=== PATIENT | male | born 1995 | race African-American/Black ===

== ENCOUNTER → 2020-01-26 | Emergency (ER) | payer MEDICAID, OTHER ==
[~2020-01-26] VITALS: Ht 170.2 cm; Wt 72.6 kg
[~2020-01-26] MED LIST: LORazepam 2MG/ML-1ML VIAL IM ONE; LORazepam 2MG/ML-1ML VIAL IV ONE
[2020-01-26 02:04] VITALS: BP 152/89
[2020-01-26 02:15] LABS: Basophils # (auto) 0 10 ^3/uL (0-0.2); Basophils % (auto) 0.3 % (0.0-2.0); Eosinophils # (auto) 0 10 ^3/uL (0-0.8); Eosinophils % (auto) 0.2 % (0.0-7.0); Hematocrit 51.1 % (41.0-53.0); Hemoglobin 17.3 g/dL (13.5-17.5); Lymphocytes # (auto) 1.5 10 ^3/uL (0.4-5.4); Lymphocytes % (auto) 10.9 % (10.0-50.0); Mean Corpuscular Hemoglobin 29.4 pg (28.0-32.0); Mean Corpuscular Hgb Conc. 33.8 g/dL (32.0-36.0); Mean Corpuscular Volume 86.8 fL (80.0-100.0); Monocytes # (auto) 0.9 10 ^3/uL (0-1.3); Monocytes % (auto) 6.6 % (0.0-12.0); Neutrophils # (auto) 11.1 10 ^3/uL (1.6-8.6); Nucleated Red Blood Cells % 0.1 %; Platelet Count (auto) 195 10^3/uL (140-450); Red Blood Cells 5.89 10^6/uL (4.5-5.90); White Blood Cell 13.6 10^3/uL (4.4-10.8)
[2020-01-26 02:34] LABS: Albumin 4.3 g/dL (3.4-5.0); Anion Gap 7 (5-15); BUN/Creatinine Ratio 9.2; Blood Alcohol < 3.0 mg/dL (0-5); Blood Urea Nitrogen 11 mg/dL (7-18); Calcium 9.5 mg/dL (8.5-10.1); Carbon Dioxide 28 mmol/L (21-32); Chloride 101 mmol/L (98-107); GFR African American 95 mL/min; GFR Non-African American 78 mL/min; Glucose 114 mg/dL (74-106); Magnesium 2.1 mg/dL (1.6-2.6); Potassium 3.3 mmol/L (3.5-5.1); Salicylate 3.3 mg/dL (2.8-20.0); Sodium 136 mmol/L (136-145)
[2020-01-26 02:37] LABS: Alanine Aminotransferase 30 U/L (16-61); Alkaline Phosphatase 77 U/L (45-117); Aspartate Aminotransferase 18 U/L (15-37); Bilirubin, Total 0.7 mg/dL (0.2-1.0); Total Protein 8.5 g/dL (6.4-8.2)
[2020-01-26 02:46] LABS: Acetaminophen < 2.0 ug/mL (10-30)
[2020-01-26 02:51] LABS: Urine Bacteria NONE SEEN /hpf (None Seen); Urine Blood Negative /uL (Negative); Urine Mucus FEW (None Seen); Urine Specific Gravity 1.015 (1.001-1.035); Urine WBC 2 /hpf (0 - 3)
[2020-01-26 03:03] LABS: Amphetamine Screen, Urine POSITIVE (NEGATIVE); Barbiturate Scree,Urine NEGATIVE (NEGATIVE); Benzodiazephine Screen, Urine NEGATIVE (NEGATIVE); Cannabinoid Screen, Urine POSITIVE (NEGATIVE); Cocaine Screen, Urine POSITIVE (NEGATIVE); Opiate Scree,Urine NEGATIVE (NEGATIVE); Phencyclidine Screen, Urine POSITIVE (NEGATIVE)
== END | disposition home or self-care (01) ==
LOC: ER 01:31
DX: F12.10 Cannabis abuse, uncomplicated (principal); F15.10 Other stimulant abuse, uncomplicated; F17.210 Nicotine dependence, cigarettes, uncomplicated
CPT/HCPCS: 36415; 70490; 71045; 80053; 80307; 80320; 80329; 81001; 83735; 85025; 96372; 99285; J2060

== ENCOUNTER 2020-04-01 06:57 | Emergency (ER) | payer MEDICAID ==
[~2020-04-01] VITALS: Ht 170.2 cm; Wt 80.3 kg
[2020-04-01 07:19] VITALS: BP 126/75
[2020-04-01] MEDS ORDERED: cefTRIAXone SOD 1,000 MG VL IM ONE (07:45)
[2020-04-01] MEDS ORDERED: methylPREDNISolone SOD SUCC 125 MG/2 ML VL IM ONE (07:45)
== END 2020-04-01 08:11 | disposition home or self-care (01) ==
LOC: ER 06:57
DX: J03.90 Acute tonsillitis, unspecified (principal)
CPT/HCPCS: 96372; 99284; J0696; J2930

== ENCOUNTER 2020-05-08 21:58 | Emergency (ER) | payer MEDICAID | END 2020-05-08 22:00 | disposition left against medical advice (07) | LOC: ER 21:58 ==